=== PATIENT | female | born 1945 | race Hispanic/Latino ===

== ENCOUNTER → 2017-09-06 | Outpatient (CLI) | payer MEDICARE ==
[~2017-09-06] MED LIST: ALPR0.25 PO; FERR1TAB54 PO; LACT10SO9 PO; LEVO75TA4 PO; PANT40TA25 PO; RIFA550T PO; [UNRECOGNIZED DRUG - CODE] PO
[2017-09-06 08:54] LABS: BASOPHILS % (AUTO) 1.3 % (0.0-5.0); EOSINOPHILS % (AUTO) 1.7 % (0.0-8.0); LYMPHOCYTES % (AUTO) 35.5 % (21.0-51.0); MEAN CORPUSCULAR HEMOGLOBIN 32.6 pg (27.0-33.0); MEAN CORPUSCULAR HGB CONC 32.3 g/dL (32.0-36.0); MEAN CORPUSCULAR VOLUME 100.9 fL (79-99); MONOCYTES % (AUTO) 9.4 % (3.0-13.0); NEUTROPHILS % (AUTO) 52.1 % (40.0-77.0); NUCLEATED RED BLOOD CELLS 0.1 % (0.0-0.19); PLATELET COUNT (AUTO) 36 K/uL (130-400); RED BLOOD CELL COUNT(AUTO) 2.78 MIL/uL (4.00-5.50); RED CELL DISTRIBUTION WIDTH 21.9 % (11.0-15.5); WHITE BLOOD COUNT (AUTO) 4.1 K/uL (4.8-10.8)
[2017-09-06 09:06] LABS: INR 1.26 (0.85-1.15); PROTHROMBIN TIME 13.2 SEC (9.6-11.6)
[2017-09-06 09:09] LABS: ALBUMIN 1.5 g/dL (3.5-5.0); BILIRUBIN,TOTAL 0.6 mg/dL (0.2-1.0); POTASSIUM 3.7 mmol/L (3.5-5.1); TOTAL PROTEIN, SERUM 5.5 g/dL (6.0-8.3)
[2017-09-06 10:04] VITALS: BP 120/53
[2017-09-06 11:01] VITALS: BP 68/21
== END | disposition home or self-care (01) ==
LOC: RAH 07:56
PROVIDERS: ATTEND Internal Medicine
DX: K74.60 Unspecified cirrhosis of liver (principal); K80.20 Calculus of gallbladder without cholecystitis without obstruction; N28.1 Cyst of kidney, acquired
CPT/HCPCS: 36415; 76700; 80053; 82105; 82140; 85025; 85610; 86850; 86900; 86901

== ENCOUNTER 2018-03-28 08:25 | Day surgery (SDC) | payer MEDICARE ==
[2018-03-25 11:27] VITALS: BP 101/44
[~2018-03-28] VITALS: Ht 157.5 cm; Wt 113.4 kg
[2018-03-28] VITALS (13 sets, daily range): BP systolic 47–101; BP diastolic 16–45
[~2018-03-28 08:25] MED LIST changes: +PREPARATION H; -[UNRECOGNIZED DRUG - CODE] PO
[2018-03-28] MEDS ORDERED: SODIUM CHLORIDE 0.9% 1000ML 1,000 ML IV ONE (09:05)
[2018-03-28] MEDS ORDERED: PROPOFOL 10 MG/ML 20ML VIAL IV ONE (10:06)
[2018-03-28] MEDS ORDERED: GLYCOPYRROLATE 1 MG/5 ML SYRINGE ONE (10:16)
[2018-03-28] MEDS ORDERED: KETAMINE HCL 100 MG/ML 5ML VIAL IJ ONE (10:16)
[2018-03-28] MEDS ORDERED: EPHEDRINE SULFATE 50 MG/ML AMPULE ONE (10:45)
--- NOTE | 2018-03-28 10:45 | NUR ---
BULMARO TOBIN CRNA MADE AWARE THE PATIENT'S BLOOD PRESSURE DROPPED TO 71/36, HR 79, O2 SAT 100% ON 2L, RR 13 AFTER NEOSYNEPHRINE GIVEN AT 1033, PATIENT IS ASLEEP AT THIS TIME. HE STATED HE WILL BRING SOME MEDICATION IN A BIT AND CHECK ON THE PATIENT.
--- NOTE | 2018-03-28 11:00 | NUR ---
BULMARO Araiza RN administered 10mg of ephedrine iv at 1100. Patient awoke at 1047 and remained awake, alert, and oriented, denying dizziness.
--- NOTE | 2018-03-28 11:12 | NUR ---
Judy Vargas CRNA made aware the patient's blood pressure dropped to 65/43, hr 87, o2 sat 98%, rr 16 after the ephedrine given at 1100, patient is awake, alert and oriented and denying dizziness. He stated to try changing the bp cuff and moving the patient to get the systolic blood pressure above 70 so she can get discharged.
--- NOTE | 2018-03-28 11:27 | NUR ---
Update Blood pressure cuff moved to the patient's right forearm at 1119 bp 56/28, hr 85, o2 sat 99%, rr 12 so patient sat to the side of the bed with assistance. Patient instructed to move feet around to get her blood circulating. At 1123 bp 84/23 and then at 1127 bp 101/44 while sitting. Patient denied dizziness.
--- NOTE | 2018-03-28 11:50 | NUR ---
UPDATE BP47/16 Addendum: 03/28/18 at 1204 by JUAN DAVID HARPER RN RN Amended: Links added.
== END 2018-03-28 11:36 | disposition home or self-care (01) ==
LOC: ENDO 08:25 → DAH 08:25 → ENDO 11:36
PROVIDERS: ATTEND Internal Medicine
DX: D13.1 Benign neoplasm of stomach (principal); K31.89 Other diseases of stomach and duodenum; I85.10 Secondary esophageal varices without bleeding; F32.9 Major depressive disorder, single episode, unspecified; F41.9 Anxiety disorder, unspecified; E03.9 Hypothyroidism, unspecified; E11.22 Type 2 diabetes mellitus with diabetic chronic kidney disease; D64.9 Anemia, unspecified; M19.90 Unspecified osteoarthritis, unspecified site; Z90.710 Acquired absence of both cervix and uterus; Z98.42 Cataract extraction status, left eye; N18.6 End stage renal disease; I45.19 Other right bundle-branch block
CPT/HCPCS: 36415; 43239; 82948 ×2; 84132; 88305; 93005; A4606; J2704; J3490 ×3; J7030